=== PATIENT | male | born 1985 | race Caucasian/White ===

== ENCOUNTER 2023-12-04 11:58 | Emergency (ER) | payer OTHER ==
[~2023-12-04] VITALS: Ht 175.3 cm; Wt 72.6 kg
[2023-12-04] MEDS ORDERED: NASAL MIST126 ML NASAL (13:05)
[2023-12-04] MEDS ORDERED: BACTRIM DS TAB1 EACH PO (13:05)
== END 2023-12-04 13:10 | disposition home or self-care (01) ==
LOC: ER 11:59
DX: S00.31XA Abrasion of nose, initial encounter (principal); X58.XXXA Exposure to other specified factors, initial encounter; Y93.89 Activity, other specified; Y92.89 Other specified places as the place of occurrence of the external cause; Y99.8 Other external cause status